=== PATIENT | female | born 1990 | race Caucasian/White ===

== ENCOUNTER 2021-11-14 13:14 | Outpatient (CLI) | payer BC ==
[~2021-11-14 13:14] MED LIST: Iopamidol 370 76% 100 ML VIAL ONE
== END 2021-11-14 13:15 | disposition home or self-care (01) ==
LOC: BICCT 13:14
PROVIDERS: ATTEND Internal Medicine
DX: D35.02 Benign neoplasm of left adrenal gland (principal)
CPT/HCPCS: 74170; Q9967